=== PATIENT | male | born 1990 | race Caucasian/White ===

== ENCOUNTER → 2020-09-01 | Outpatient (CLI) | payer OTHER ==
[~2020-09-01] MED LIST: OMNIPAQUE 350 MG/ML, 75ML BOTTLE ONE
== END | disposition home or self-care (01) ==
LOC: CFH 13:36
PROVIDERS: ATTEND Family Medicine
DX: J06.9 Acute upper respiratory infection, unspecified (principal); Z20.828 Contact with and (suspected) exposure to other viral communicable diseases
CPT/HCPCS: 71260; Q9967

== ENCOUNTER 2020-09-18 16:10 | Emergency (ER) | payer OTHER ==
[~2020-09-18] VITALS: Ht 182.9 cm; Wt 85.6 kg
--- NOTE | 2020-09-18 16:27 | NUR ---
PATIENT WALKED BACK FROM TRIAGE WITH CHIEF C/O COUGH, SOB AND FATIGUE X3 MONTHS. COVID + IN MARCH, PATIENT RECOVERED BUT STARTED HAVING COUGH, SOB, AND FATIGUE FOR THE LAST 3 MONTHS. PATIENT SEEN 5 TIMES IN UC OVER THE LAST 3 MONTHS, PATIENT PUTTING ON MULTIPLE ABX, AND STEROID PACKS. PATIENT'S LAST UC VISIT 10 DAYS AGO, SYMPTOMS NOT GETTING BETTER. PATIENT DENIES FEVER, DENIES N/V, PATIENT DOES REPORT DIARRHEA. PATIENT HAD CHEST X-RAY LAST MONTH WHICH SHOWED RIGHT UPPER LOBE PNA PER MOM.
--- NOTE | 2020-09-18 17:56 | NUR ---
ERMD AT BEDSIDE FOR EVALUATION.
[2020-09-18 18:18] LABS: BASOPHILS % (AUTO) 1 % (0-1); EOSINOPHILS % (AUTO) 1 % (1-7); LYMPHOCYTES % (AUTO) 19 % (22-44); MEAN CORPUSCULAR HEMOGLOBIN 31.2 pg (27.5-34.5); MEAN CORPUSCULAR HGB CONC 34.8 g/dL (33.2-36.2); MEAN PLATELET VOLUME 7.7 fL (7.4-10.4); MONOCYTES % (AUTO) 10 % (2-9); NEUTROPHILS % (AUTO) 69 % (42-75); PLATELET COUNT 268 x10^3/uL (130-400); RED BLOOD COUNT 4.53 x10^6/uL (4.38-5.82); RED CELL DISTRIBUTION WIDTH 12.9 % (9.4-14.8)
[2020-09-18 18:19] LABS: MD NO
--- NOTE | 2020-09-18 18:25 | NUR ---
20 GAUGE IV STARTED LEFT FA, SECOND SET OF BLOOD CULTURES DRAWN AND SENT TO LAB. PATIENT RESTING IN [facility] AT BEDSIDE, VSS, CALL LIGHT WITHIN REACH.
[2020-09-18 18:30] LABS: ALANINE AMINOTRANSFERASE 23 U/L (12-78); ANION GAP 7 mmol/L (5-15); CHLORIDE 107 mmol/L (98-107); CREATININE 1.11 mg/dL (0.7-1.3)
[2020-09-18 18:34] LABS: ALKALINE PHOSPHATASE 70 U/L (45-117); BILIRUBIN,TOTAL 0.5 mg/dL (0.2-1.0); TOTAL PROTEIN 7.3 g/dL (6.4-8.2); TROPONIN I < 0.015 ng/mL (0.000-0.045)
--- NOTE | 2020-09-18 19:15 | NUR ---
report of pt from nimco osborne and assuming care of pt at this time.
--- NOTE | 2020-09-18 19:45 | NUR ---
pt ambulated around er for 2 laps per erp request. vs remained stable. pt vs updated in emr after ambulation around ed. pt denies any other needs pertaining to this visit at this time. dr. zuleta updated on pt vs.
--- NOTE | 2020-09-18 20:39 | NUR ---
PT D/C WITH D/C SUMMARY AND SCRIPTS IN CARE OF MOTHER. PT DENIES ANY OTHER NEEDS PERTAINING TO THIS VISIT. F/U REFERRAL WITH CARDIOLOGY AND PULMONOLOGY PROVIDED TO PT. PT VERBALIZES UNDERSTANDING OF NEED TO CONTACT SPECIALISTS. PT PIV D/C WITH TIP INTACT. PT VSS UPON PT D/C AND PT AMBULATES TO REGISTRATION DESK WITH STEADY GAIT FOR D/C HOME.
[2020-09-18 20:42] VITALS: BP 130/71
== END 2020-09-18 20:43 | disposition home or self-care (01) ==
LOC: ED 16:49
DX: R50.9 Fever, unspecified (principal); R05 Cough; R06.00 Dyspnea, unspecified; Z87.891 Personal history of nicotine dependence
CPT/HCPCS: 36415; 71045; 80053; 83605; 83880; 84484; 85025; 87040; 99284

== ENCOUNTER 2021-03-01 20:46 | Emergency (ER) | payer SELFPAY ==
[~2021-03-01] VITALS: Ht 185.4 cm; Wt 81.9 kg
--- NOTE | 2021-03-01 21:57 | NUR ---
REPORT RECIEVED FROM VIKAS REHMAN
[2021-03-01] MEDS ORDERED: ZIPRASIDONE 20 MG INJ IM ONE ×2 (22:17→22:30)
[2021-03-01 22:40] LABS: BASOPHILS % (AUTO) 0 % (0-1); EOSINOPHILS % (AUTO) 1 % (1-7); LYMPHOCYTES % (AUTO) 13 % (22-44); MEAN CORPUSCULAR HEMOGLOBIN 32.5 pg (27.5-34.5); MEAN CORPUSCULAR HGB CONC 35.3 g/dL (33.2-36.2); MEAN PLATELET VOLUME 8.4 fL (7.4-10.4); MONOCYTES % (AUTO) 11 % (2-9); NEUTROPHILS % (AUTO) 75 % (42-75); PLATELET COUNT 145 x10^3/uL (130-400); RED BLOOD COUNT 4.26 x10^6/uL (4.38-5.82); RED CELL DISTRIBUTION WIDTH 14.8 % (9.4-14.8)
--- NOTE | 2021-03-01 22:45 | NUR ---
MOTHER (SAPNA): [phone] (CALL FIRST) DINA (FRIEND): [phone]
[2021-03-01 22:51] LABS: ALANINE AMINOTRANSFERASE 55 U/L (12-78); ALBUMIN 4.1 g/dL (3.4-5.0); ANION GAP 5 mmol/L (5-15); CALCIUM 9.3 mg/dL (8.5-10.1); CHLORIDE 104 mmol/L (98-107); CREATININE 0.98 mg/dL (0.7-1.3)
[2021-03-01 22:53] LABS: AMPHETAMINE SCREEN, URINE Negative (Negative); BARBITURATE SCREEN, URINE Negative (Negative); BENZODIAZEPINE SCREEN, URINE Negative (Negative); CANNABINOID SCREEN, URINE Positive (Negative); COCAINE SCREEN, URINE Negative (Negative); METHADONE SCREEN, URINE Negative (Negative); OPIATE SCREEN, URINE Negative (Negative)
[2021-03-01 22:57] LABS: SALICYLATE LEVEL < 1.7 mg/dL (2.8-20.0)
[2021-03-01] MEDS ORDERED: POTASSIUM CHLORIDE 20 MEQ TAB.ER.PRT PO ONE (23:00)
[2021-03-01 23:02] LABS: ALKALINE PHOSPHATASE 76 U/L (45-117); BILIRUBIN,TOTAL 0.7 mg/dL (0.2-1.0); TOTAL PROTEIN 7.7 g/dL (6.4-8.2)
[2021-03-01] MEDS ORDERED: POTASSIUM CHLORIDE 20 MEQ TAB.ER.PRT ONE (23:21)
[2021-03-01 23:22] VITALS: BP 121/80
--- NOTE | 2021-03-01 23:30 | NUR ---
ATTEMPTED TO CALL MOTHER TO UPDATE ON D/C. NO ANSWER, CALED FRIEND (DINA) AND HE IS UNABLE TO HOME PARAPROFESSIONAL PT. THIS RN TO PROVIDE TAXI VOUCHER HOME
[2021-03-03] MEDS ORDERED: BUSPIRONE (13:55)
== END 2021-03-02 00:05 | disposition home or self-care (01) ==
LOC: ED 21:16
DX: F31.71 Bipolar disorder, in partial remission, most recent episode hypomanic (principal)
CPT/HCPCS: 36415; 80053; 80299; 80307; 80320; 80329; 84443; 85025; 96372; 99283; J3486; G0480

== ENCOUNTER 2021-03-03 09:19 | Emergency (ER) | payer SELFPAY ==
[~2021-03-03] VITALS: Ht 182.9 cm; Wt 82.1 kg
[2021-03-03 10:10] LABS: BASOPHILS % (AUTO) 1 % (0-1); EOSINOPHILS % (AUTO) 4 % (1-7); LYMPHOCYTES % (AUTO) 23 % (22-44); MEAN CORPUSCULAR HEMOGLOBIN 32.5 pg (27.5-34.5); MEAN CORPUSCULAR HGB CONC 35.1 g/dL (33.2-36.2); MEAN PLATELET VOLUME 7.6 fL (7.4-10.4); MONOCYTES % (AUTO) 14 % (2-9); NEUTROPHILS % (AUTO) 58 % (42-75); PLATELET COUNT 158 x10^3/uL (130-400); RED BLOOD COUNT 4.28 x10^6/uL (4.38-5.82); RED CELL DISTRIBUTION WIDTH 15.4 % (9.4-14.8)
[2021-03-03 10:23] LABS: ALANINE AMINOTRANSFERASE 72 U/L (12-78); ALBUMIN 3.9 g/dL (3.4-5.0); ANION GAP 8 mmol/L (5-15); CALCIUM 8.6 mg/dL (8.5-10.1); CHLORIDE 104 mmol/L (98-107); CREATININE 0.84 mg/dL (0.7-1.3)
[2021-03-03 10:27] LABS: ALKALINE PHOSPHATASE 60 U/L (45-117); BILIRUBIN,TOTAL 0.6 mg/dL (0.2-1.0); TOTAL PROTEIN 7.4 g/dL (6.4-8.2)
[2021-03-03 10:29] LABS: SALICYLATE LEVEL < 1.7 mg/dL (2.8-20.0)
[2021-03-03] MEDS ORDERED: LORazepam 1MG TABLET ONE (10:41)
[2021-03-03] MEDS ORDERED: LORazepam 1MG TABLET PO ONE (11:00)
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
[2021-03-03 11:34] LABS: AMPHETAMINE SCREEN, URINE Negative (Negative); BARBITURATE SCREEN, URINE Negative (Negative); BENZODIAZEPINE SCREEN, URINE Negative (Negative); CANNABINOID SCREEN, URINE Positive (Negative); COCAINE SCREEN, URINE Negative (Negative); METHADONE SCREEN, URINE Negative (Negative); OPIATE SCREEN, URINE Negative (Negative)
--- NOTE | 2021-03-03 11:52 | NUR ---
Pt continually out of bed. This RN has attempted multiple times to verbally redirect pt. Pt yells "fuck you," lunging at this nurse without making contact. Security called and pt placed in 4 point restraints.
--- NOTE | 2021-03-03 13:08 | NUR ---
PT REPORT FROM VIKAS EDWARDS. PT RESTING ON STACIE TALKING TO ANDERSON ERICKSON FROM [facility].
--- NOTE | 2021-03-03 13:38 | NUR ---
PER ANDERSON ERICKSON, PT IS NOW ON A LEGAL HOLD.
--- NOTE | 2021-03-03 13:51 | NUR ---
PT RESTING QUIETLY ON STACIE, MOTHER IN ROOM. PT ADMITS TO ETOH W/DRAWAL. DENIES SI/HI. PT AWARE OF LEGAL HOLD. PT'S MOM STATES SHE'LL TAKE PT'S BELONGINGS HOME.
[2021-03-03] MEDS ORDERED: BUSPIRONE (13:55)
[2021-03-03] MEDS ORDERED: LORazepam 1MG TABLET PO PRN (14:00)
--- NOTE | 2021-03-03 14:00 | NUR ---
PT DENIES HALLUCINATIONS AND TREMORS, AT THIS TIME. REPORTS MINOR GIBBONS. DENIES SI/HI. RESP EVEN & UNLABORED, SPEECH CLEAR AND EVEN, SKIN WNL. CARDIAC MONITORING IN PROGRESS: NSR. SIDE RAILS DOWN, CALL LIGHT W/ PT. SITTER OUTSIDE ROOM.
--- NOTE | 2021-03-03 14:28 | NUR ---
PT ENDORSED TO HAIM MONSIVAIS RN. SITTER OUTSIDE ROOM. OBSERVED PT'S MOM LEAVING DEPARTMENT, CARRYING PT'S BELONGINGS.
[2021-03-03] MEDS ORDERED: OLANZAPINE 5 MG TABLET ONE (14:43)
[2021-03-03] MEDS: OLANZAPINE 5 MG TABLET PO SCH (14:46)
--- NOTE | 2021-03-03 14:48 | NUR ---
THROUGHPUT RN: PT PACKET FAXED TO [facility], [facility] AND [facility].
--- NOTE | 2021-03-03 15:07 | NUR ---
THROUGHPUT: PER [facility], PT WOULD BE SELF PAY ONLY.
--- NOTE | 2021-03-03 15:09 | NUR ---
PT CARE RESUMED.
--- NOTE | 2021-03-03 15:15 | NUR ---
PT ASLEEP. SITTER OUTSIDE ROOM
--- NOTE | 2021-03-03 15:19 | NUR ---
[facility] denied patient as patient would be self pay only.
--- NOTE | 2021-03-03 15:58 | NUR ---
PT DOZING; EVEN CHEST RISE & FALL NOTED. SITTER OUTSIDE ROOM
[2021-03-03] MEDS ORDERED: POTASSIUM CHLORIDE 20 MEQ TAB.ER.PRT ONE (16:48)
[2021-03-03] MEDS: POTASSIUM CHLORIDE 20 MEQ TAB.ER.PRT PO SCH (17:06)
--- NOTE | 2021-03-03 17:12 | NUR ---
KDUR GIVEN PER eMAR. ADDITIONAL BLANKET PROVIDED. NO ADDITIONAL NEEDS, AT THIS TIME.
--- NOTE | 2021-03-03 17:30 | NUR ---
DINNER TRAY ORDERED.
--- NOTE | 2021-03-03 17:41 | NUR ---
PT ASLEEP; RESP UNLABORED. SITTER OUTSIDE ROOM.
--- NOTE | 2021-03-03 18:04 | NUR ---
PT ASLEEP; EASILY AWAKENED. DINNER TRAY DELIVERED.
--- NOTE | 2021-03-03 18:55 | NUR ---
PT REPORT TO VIKAS LÓPEZ. PT CARE TRANSFERRED. SITTER OUTSIDE DOOR.
--- NOTE | 2021-03-03 19:02 | NUR ---
PT ASLEEP IN BED, ALL NEEDS IN REACH, CALL LIGHT IN REACH, NAD AT THIS TIME, VSS, SITTER IN LINE OF SIGHT
--- NOTE | 2021-03-03 20:15 | NUR ---
PT ASLEEP IN BED, GARAGE DOORS DOWN, SITTER IN LINE OF SIGHT, ALL NEEDS IN REACH, CALL LIGHT IN REACH, NAD AT THIS TIME
--- NOTE | 2021-03-03 21:15 | NUR ---
PT ASLEEP IN BED, GARAGE DOORS DOWN, SITTER IN LINE OF SIGHT, ALL NEEDS IN REACH, CALL LIGHT IN REACH, NAD AT THIS TIME
--- NOTE | 2021-03-04 02:30 | NUR ---
PT ASLEEP IN BED, GARAGE DOORS DOWN, SITTER IN LINE OF SIGHT, ALL NEEDS IN REACH, CALL LIGHT IN [facility], NAD AT THIS TIME Addendum: 03/04/21 at 0544 by ROLAND PT ASLEEP IN BED, GARAGE NOT DOWN IN ORDER TO ACCESS MEDICAL EQUIPMENT TO MONITOR VITAL SIGNS, SITTER IN LINE OF SIGHT, ALL NEEDS IN REACH, CALL LIGHT IN [facility], NAD AT THIS TIME
--- NOTE | 2021-03-04 03:30 | NUR ---
PT ASLEEP IN BED, GARAGE DOORS DOWN, SITTER IN LINE OF SIGHT, ALL NEEDS IN REACH, CALL LIGHT IN [facility], NAD AT THIS TIME Addendum: 03/04/21 at 0544 by ROLAND PT ASLEEP IN BED, GARAGE NOT DOWN IN ORDER TO ACCESS MEDICAL EQUIPMENT TO MONITOR VITAL SIGNS, SITTER IN LINE OF SIGHT, ALL NEEDS IN REACH, CALL LIGHT IN [facility], NAD AT THIS TIME
--- NOTE | 2021-03-04 04:30 | NUR ---
PT ASLEEP IN BED, GARAGE DOORS DOWN, SITTER IN LINE OF SIGHT, ALL NEEDS IN REACH, CALL LIGHT IN [facility], NAD AT THIS TIME Addendum: 03/04/21 at 0544 by ROLAND PT ASLEEP IN BED, GARAGE NOT DOWN IN ORDER TO ACCESS MEDICAL EQUIPMENT TO MONITOR VITAL SIGNS, SITTER IN LINE OF SIGHT, ALL NEEDS IN REACH, CALL LIGHT IN [facility], NAD AT THIS TIME
--- NOTE | 2021-03-04 06:30 | NUR ---
PT ASLEEP IN BED, GARAGE NOT DOWN IN ORDER TO ACCESS MEDICAL EQUIPMENT TO MONITOR VITAL SIGNS, SITTER IN LINE OF SIGHT, ALL NEEDS IN REACH, CALL LIGHT IN REACH, NAD AT THIS TIME.
--- NOTE | 2021-03-04 06:58 | NUR ---
Report given to VIKAS Rangel no further questions at this time
--- NOTE | 2021-03-04 07:02 | NUR ---
BEDSIDE REPORT TAKEN FROM JONNY BEAN
--- NOTE | 2021-03-04 07:08 | NUR ---
pt a&o, nadn, room secured, all security precautions in place, sitter at bedside. headphones taken out of room and secured.
[2021-03-04] MEDS: POTASSIUM CHLORIDE 20 MEQ TAB.ER.PRT PO SCH (08:00)
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
--- NOTE | 2021-03-04 10:20 | NUR ---
pt back from [place].
--- NOTE | 2021-03-04 10:21 | NUR ---
preceptor RN note: edmd sahm notified pt has order for potassium bid with no stop date, received one dose yesterday for potassium level 3.0. md gave verbal order to cancel potassium order with no additional administrations, states that no elementary education teacher is indicated at this time as potassium was corrected yesterday.
[2021-03-04] MEDS ORDERED: OLANZAPINE 5 MG TABLET ONE (10:43)
[2021-03-04] MEDS: OLANZAPINE 5 MG TABLET PO SCH (10:47)
--- NOTE | 2021-03-04 10:54 | NUR ---
pt medicated per order, tolerated well. pt a&o, resps even and unlabored, vss, all security precautions in place, sitter at bedside, latoyan.
[2021-03-04] MEDS ORDERED: LORazepam 1MG TABLET ONE (11:11)
--- NOTE | 2021-03-04 12:20 | NUR ---
PT SLEEPING ON HOSPITAL BED, RESPS EVEN AND UNLABORED. ROOM SECURE. SITTER MONITORING FROM HALLWAY FOR SAFETY. MEAL TRAY ORDERED.
--- NOTE | 2021-03-04 13:00 | NUR ---
SI MEAL TRAY GIVEN TO PT, ROOM SECURE, SITTER MONITORING FROM [facility] FOR SAFETY. PT TOLERATING MEAL TRAY WELL.
--- NOTE | 2021-03-04 13:43 | NUR ---
report given to elis Car
--- NOTE | 2021-03-04 14:30 | NUR ---
report received from VIKAS Car, pt sleeping on hospital bed. rseps even and unlabored, sitter monitoring from [facility] for safety.
--- NOTE | 2021-03-04 15:26 | NUR ---
pt sleeping on hospital bed, resps even and unlabored, room secure. sitter monitoring from hallway for safety.
--- NOTE | 2021-03-04 16:15 | NUR ---
pt sleeping in hospital bed, resps even and unlabored, nadn. room secure, sitter monitoring from [facility] for safety.
--- NOTE | 2021-03-04 17:08 | NUR ---
pt given SI meal tray. pt a&o, rsps even and unlabored, nadn. ciwa score 0. pt has no complaint. pt denies difficulty voiding/stooling today, lbm today. pt room secure, sitter monitoring from [facility] for safety.
--- NOTE | 2021-03-04 17:10 | NUR ---
Note gloria in ED - 03/04/21 at 1714 by LINCOLN ELIJAH meal gordo jovel, pt is discussing safe discharge plan with chandrika jiang. room secure. sitter monitoring from [facility] for safety.
--- NOTE | 2021-03-04 17:14 | NUR ---
note undone, charted on wrong pt.
--- NOTE | 2021-03-04 18:22 | NUR ---
PT SITTING IN BED, A&O, RESPS EVEN AND UNLABORED, NADN. ALL SECURITY PRECAUTIONS IN PLACE, SITTER WITHIN VIEW IN HALLWAY.
--- NOTE | 2021-03-04 19:00 | NUR ---
report given to nimco kendrick
--- NOTE | 2021-03-04 19:06 | NUR ---
Report from Micah BEAN
--- NOTE | 2021-03-04 19:08 | NUR ---
Pt resting in bed, watching TV, NADN, no other requests at this time
--- NOTE | 2021-03-04 19:13 | NUR ---
pt requests RN call mother to update, pt's mother had visited earlier today and taken pt's cell phone with her. this RN called pt's mother ynes and gave her update with pt permission. mother to visit pt in ED and take pt's cell phone cord and headphones home as well, currently secured. report to VIKAS Trujillo.
--- NOTE | 2021-03-04 19:47 | NUR ---
Just talked to mother, Radha, she reports that she will be back in the AM to visit her son and meet with CONTACT OFFICER to go over addional treatment/rehabilatation options for pt.
--- NOTE | 2021-03-04 19:49 | NUR ---
pt continues to rest in bed, sitter in view of pt, NADN
--- NOTE | 2021-03-04 20:27 | NUR ---
Clarified zyprexa dose with pharmacy, told to give at 2200 instead of the scheduled 2100 to ensure that dose is properly spaced from prior dose. ERP notified.
--- NOTE | 2021-03-04 20:50 | NUR ---
Pt sitting up in bed watching TV, ERP Law at bedside with pt to discuss POC
--- NOTE | 2021-03-04 20:52 | NUR ---
ERP Law clarifed to give zyprexa at scheduled time, WCTM
[2021-03-04] MEDS ORDERED: OLANZAPINE 10 MG TABLET ONE (20:55)
[2021-03-04] MEDS ORDERED: OLANZAPINE 10 MG TABLET PO SCH (21:00)
--- NOTE | 2021-03-04 21:55 | NUR ---
Pt resting in bed with eyes closed, even and symmetrical chest rise, NADN, sitter in view of pt
--- NOTE | 2021-03-04 22:51 | NUR ---
Pt continues to rest in bed with eyes closed, even and symmetrical chest rise, NADN, sitter in view of pt
--- NOTE | 2021-03-04 23:54 | NUR ---
Pt continues to rest in bed with eyes closed and blanket over head, even and symmetrical chest rise, NADN, sitter in view of pt
--- NOTE | 2021-03-05 00:56 | NUR ---
Pt continues to rest in bed with eyes closed and sitter in sight of pt
--- NOTE | 2021-03-05 01:05 | NUR ---
REPORT RECEIVED FROM RASHMI BEAN, PT CARE TRANSFERRED AT THIS TIME.
--- NOTE | 2021-03-05 01:37 | NUR ---
Patient is resting comfortably in bed. Bed in lowest, rails engaged, call light on lap, eyes closed, even and unlabored respirations. Room secured, sitter in line of sight. [facility].
--- NOTE | 2021-03-05 03:15 | NUR ---
Patient is resting comfortably in bed. Bed in lowest, rails engaged, call light on lap, eyes closed, even and unlabored respirations. Room secured, sitter in line of sight. [facility].
--- NOTE | 2021-03-05 06:22 | NUR ---
PT RESTING ON GURNEY, NAD, BED IN LOWEST, ROOM SECURED, SITTER IN LINE OF SIGHT, EYES CLOSED, EVEN AND UNLABORED RESPIRATIONS. BREAKFAST TRAY ORDERED. WCTM.
--- NOTE | 2021-03-05 06:53 | NUR ---
REPORT TO ADELIA BEAN, PT CARE TRANSFERRED AT THIS TIME.
--- NOTE | 2021-03-05 07:09 | NUR ---
PT RESTING WITH EYES CLOSED AT THIS TIME. NAD NOTED. CURRENTLY AWAITING BREAKFAST TRAY. SITTER OUTSIDE OF ROOM FOR DIRECT OBSERVATION AND Q15 MIN SAFETY CHECKS.
--- NOTE | 2021-03-05 08:10 | NUR ---
PT SITTING UP IN BED, GIVEN MEAL TRAY. NAD NOTED AT THIS TIME. PT DENIES PAIN. PT CALM AND COOPERATIVE WITH RN. SITTER OUTSIDE OF ROOM FOR DIRECT OBSERVATION AND Q15 MIN SAFETY CHECKS.
--- NOTE | 2021-03-05 09:02 | NUR ---
PT SITTING UP IN BED, NAD NOTED AT THIS TIME. RESPIRATIONS EVEN AND UNLABORED ON RA. SITTER OUTSIDE OF ROOM FOR DIRECT OBSERVATIONS AND Q15 MIN SAFETY CHECKS.
--- NOTE | 2021-03-05 09:59 | NUR ---
MOTHER CALLED FOR STATUS UPDATE. MOTHER PLANS TO COME VISIT, [facility]
--- NOTE | 2021-03-05 10:05 | NUR ---
SITTER OUTSIDE OF ROOM. PT RESPIRATIONS EVEN AND UNLABORED ON RA. NAD NOTED AT THIS TIME. Q15 MIN SAFETY CHECKS BEING COMPLETED.
--- NOTE | 2021-03-05 10:34 | NUR ---
PT'S MOTHER AT BEDSIDE AT THIS TIME. PT PLEASED TO SEE HIS MOTHER. NAD NOTED AT THIS TIME. SITTER OUTSIDE RESOURCE.
--- NOTE | 2021-03-05 11:10 | NUR ---
PT SITTING UP WITH MOTHER AT BEDSIDE. NAD NOTED AT THIS TIME. LUNCH TRAY ORDERED. SITTER OUTSIDE OF ROOM FOR DIRECT OBSERVATION AND Q15 MIN SAFETY CHECKS. AWAITING [facility] ADMISSION.
--- NOTE | 2021-03-05 12:02 | NUR ---
PT SITTING IN BED, MOTHER AT BEDSIDE. NAD NOTED. PT AND MOTHER SPEAKING PLEASANTLY WITH EACH OTHER. SITTER OUTSIDE OF ROOM FOR DIRECT OBSERVATION AND Q15 MIN SAFETY CHECKS.
--- NOTE | 2021-03-05 12:53 | NUR ---
MEAL TRAY GIVEN. NAD NOTED, PT JOKES WITH STAFF. SITTER OUTSIDE OF ROOM FOR DIRECT OBSERVATION AND Q15 MIN SAFETY CHECKS.
--- NOTE | 2021-03-05 13:07 | NUR ---
Covering primary nurse for break; per throughput [place] pt can only go to [facility] and there is no male beds, mother and pt updated re: POC
--- NOTE | 2021-03-05 13:13 | NUR ---
intermediate project manager here to interview pt at bedside.
[2021-03-05] MEDS ORDERED: OLAN10TA69 PO (13:49)
--- NOTE | 2021-03-05 14:03 | NUR ---
second officer cleared pt, pt waiting for bilingual patient support caseworker prior to discharge.
--- NOTE | 2021-03-05 14:55 | NUR ---
Pt dc home after psych cleared pt and gave rx. Dr Dsouza typed up dc papers. VSS, pt taken home by his mom. Pt verballizes understanding.
[2021-03-05 14:56] VITALS: BP 135/77
== END 2021-03-05 14:59 | disposition home or self-care (01) ==
LOC: ED 11:20
DX: F33.3 Major depressive disorder, recurrent, severe with psychotic symptoms (principal); F10.121 Alcohol abuse with intoxication delirium; E87.6 Hypokalemia; F17.210 Nicotine dependence, cigarettes, uncomplicated; Y90.0 Blood alcohol level of less than 20 mg/100 ml
CPT/HCPCS: 36415; 80053; 80299; 80307; 80320; 80329; 82140; 85025; 93005; 99285; G0480